=== PATIENT | male | born 1990 | race Caucasian/White ===

== ENCOUNTER 2017-09-12 16:50 | Emergency (ER) | payer OTHER ==
[2017-09-12 16:53] VITALS: BP 141/75; PULSE 92; RESP 18; TEMP 98.2
--- NOTE | 2017-09-12 17:09 | ED ---
ENT HPI - General Chief complaint: Dental/Oral Stated complaint: Tooth Pain Time Seen by Provider: 09/12/17 16:53 Source: patient Mode of arrival: ambulatory Limitations: no limitations - History of Present Illness Initial comments: 27-year-old male patient presented to the emergency department today for evaluation of left-sided dental pain. Patient states his broken tooth on the left upper and the left lower. Patient states that he broke 2 teeth playing football couple of years ago. States that he started having pain to the area is about 3 days ago. States he does have a dentist appointment next week however cannot stand the pain until then. States he is unable to sleep, eat, or drink related to this. He is reporting mild left-sided facial swelling. He denies any fevers or chills. Denies any trismus or difficulty swallowing. Patient denies any recent rash, shortness breath, chest pain, abdominal pain, nausea, vomiting, diarrhea, constipation, back pain, numbness, tingling, dizziness, weakness, hematuria, dysuria, urinary urgency, urinary frequency, headache, visual changes, or any other complaints. - Related Data Home Medications Medication Instructions Recorded Confirmed Acetaminophen Tab [Tylenol Tab] 650 mg PO RT-Q6H PRN 09/18/16 09/18/16 Ibuprofen [Motrin] 200 - 400 mg PO Q6HR PRN 09/18/16 09/18/16 Previous Rx's Medication Instructions Recorded HYDROcodone/APAP 5-325MG [[place] 1 tab PO Q6HR PRN #20 tab 09/18/16 5-325] Ibuprofen [Motrin] 800 mg PO Q8HR PRN #21 tab 09/18/16 Penicillin V Potassium [Pen Vee K] 500 mg PO TID 10 Days tab 09/18/16 Acetaminophen-Codeine 300-30mg 1 tab PO Q6H PRN #15 tablet 09/12/17 [Tylenol #3] Ibuprofen [Motrin] 600 mg PO Q8HR PRN #30 tab 09/12/17 Penicillin V Potassium [Pen Vee K] 500 mg PO Q6H #40 tablet 09/12/17 Allergies Allergy/AdvReac Type Severity Reaction Status Date / Time Sulfa (Sulfonamide Allergy Dyspnea/Bi Verified 09/12/17 16:52 Antibiotics) h/Hives Review of Systems ROS Statement: Those systems with pertinent positive or pertinent negative responses have been documented in the HPI. ROS Other: All systems not noted in ROS Statement are negative. Past Medical History Past Medical History: No Reported History History of Any Multi-Drug Resistant Organisms: None Reported Past Surgical History: Appendectomy, Ear Surgery, Tonsillectomy Additional Past Surgical History / Comment(s): eye surgery Past Psychological History: No Psychological Hx Reported Smoking Status: Current every day smoker Past Alcohol Use History: Occasional Past Drug Use History: Marijuana General Exam Limitations: no limitations General appearance: alert, in no apparent distress, other (This is a well- developed, well-nourished adult male patient in no acute distress. Vital signs upon presentation are temperature 98.2F, pulse 92, respirations 18, blood pressure 141/75, pulse ox 98% on room air.) Eye exam: Present: normal appearance, PERRL, EOMI. Absent: scleral icterus, conjunctival injection, periorbital swelling ENT exam: Present: normal exam, mucous membranes moist, other (Poor dentition noted. Multiple broken teeth to the left upper and left lower jaw. There is surrounding gingival erythema and swelling.) Neck exam: Present: normal inspection. Absent: tenderness, meningismus, lymphadenopathy Respiratory exam: Present: normal lung sounds bilaterally. Absent: respiratory distress, wheezes, rales, rhonchi, stridor Cardiovascular Exam: Present: regular rate, normal rhythm, normal heart sounds. Absent: systolic murmur, diastolic murmur, rubs, gallop, clicks Neurological exam: Present: alert, oriented X3, CN II-XII intact Psychiatric exam: Present: normal affect, normal mood Skin exam: Present: warm, dry, intact, normal color. Absent: rash Course Vital Signs 09/12/17 16:50 Temperature 98.2 F Pulse Rate 92 Respiratory 18 Rate Blood Pressure 141/75 O2 Sat by Pulse 98 Oximetry Medical Decision Making - Medical Decision Making 27-year-old male patient presented to the emergency department today for evaluation of left-sided dental pain. Physical examination did reveal mild left -sided facial swelling. Multiple broken teeth. Surrounding gingival erythema and swelling. No evidence of drainable abscess. We will discharge patient with pain medication and antibiotics. He does have a dentist appointment next week he is urged to keep this appointment. He is instructed to return here immediately for any new, worsening, or concerning symptoms. He verbalizes understanding and agrees with this plan. Disposition Clinical Impression: Dental infection Disposition: HOME SELF-CARE Condition: Good Instructions: Dental Caries (ED), Toothache (ED) Additional Instructions: Apply warm compresses to the outside of the face. Take medications as directed. Follow-up with the primary care physician for recheck in 1-2 days. Return here immediately for any new, worsening, or concerning symptoms. Prescriptions: Acetaminophen-Codeine 300-30mg [Tylenol #3] 1 tab PO Q6H PRN #15 tablet PRN Reason: Pain Ibuprofen [Motrin] 600 mg PO Q8HR PRN #30 tab PRN Reason: Pain Penicillin V Potassium [Pen Vee K] 500 mg PO Q6H #40 tablet Referrals: Carmen Gray MD [Primary Care Provider] - 1-2 days Time of Disposition: 17:08
[2017-09-12] MEDS ORDERED: KETOROLAC 30 MG/ML 1 ML VIAL IM STA (17:11)
== END 2017-09-12 17:24 | disposition home or self-care (01) ==
LOC: EC 16:50
DX: K04.7 Periapical abscess without sinus (principal); S02.5XXD Fracture of tooth (traumatic), subsequent encounter for fracture with routine healing; F17.200 Nicotine dependence, unspecified, uncomplicated; Z88.2 Allergy status to sulfonamides
CPT/HCPCS: 99282; 96372; J1885

== ENCOUNTER 2018-02-06 01:20 | Emergency (ER) | payer OTHER ==
[2018-02-06 01:24] VITALS: BP 140/95; PULSE 81; RESP 18; TEMP 97.8
[2018-02-06] MEDS ORDERED: LIDOCAINE IM STA (01:33)
[2018-02-06] MEDS ORDERED: EPINEPHRINE IM STA (01:33)
--- NOTE | 2018-02-06 01:35 | ED ---
ENT HPI - General Chief complaint: ENT Stated complaint: FB ear Time Seen by Provider: 02/06/18 01:33 Source: patient Mode of arrival: ambulatory Limitations: no limitations - History of Present Illness Initial comments: Juan is a 27-year-old male who presents the emergency department for evaluation of a possible bug in his left ear. Patient reports that he was sleeping comfortably when he suddenly felt a buzzing in his left ear. He he felt that there was a bug in his ear, he attempted to remove it with a Q-tip but states that he heard a crunching and is concerned that he may have pushed it further in his ear. He reports the bug stopped buzzing after he smashed it with the q-tip. He expresses significant anxiety about the situation but no other complaints. - Related Data Home Medications Medication Instructions Recorded Confirmed Acetaminophen Tab [Tylenol Tab] 650 mg PO RT-Q6H PRN 09/18/16 09/18/16 Ibuprofen [Motrin] 200 - 400 mg PO Q6HR PRN 09/18/16 09/18/16 Previous Rx's Medication Instructions Recorded HYDROcodone/APAP 5-325MG [[place] 1 tab PO Q6HR PRN #20 tab 09/18/16 5-325] Ibuprofen [Motrin] 800 mg PO Q8HR PRN #21 tab 09/18/16 Penicillin V Potassium [Pen Vee K] 500 mg PO TID 10 Days tab 09/18/16 Acetaminophen-Codeine 300-30mg 1 tab PO Q6H PRN #15 tablet 09/12/17 [Tylenol #3] Ibuprofen [Motrin] 600 mg PO Q8HR PRN #30 tab 09/12/17 Penicillin V Potassium [Pen Vee K] 500 mg PO Q6H #40 tablet 09/12/17 Allergies Allergy/AdvReac Type Severity Reaction Status Date / Time Sulfa (Sulfonamide Allergy Dyspnea/Bi Verified 02/06/18 01:25 Antibiotics) h/Hives Review of Systems ROS Statement: Those systems with pertinent positive or pertinent negative responses have been documented in the HPI. ROS Other: All systems not noted in ROS Statement are negative. Past Medical History Past Medical History: No Reported History History of Any Multi-Drug Resistant Organisms: None Reported Past Surgical History: Appendectomy, Ear Surgery, Tonsillectomy Additional Past Surgical History / Comment(s): eye surgery Past Psychological History: No Psychological Hx Reported Smoking Status: Current every day smoker Past Alcohol Use History: Occasional Past Drug Use History: Marijuana General Exam Limitations: no limitations General appearance: alert, anxious Head exam: Present: atraumatic, normocephalic Eye exam: Present: PERRL ENT exam: Present: other (Foreign body in left ear, appears to be some species of beatle) Neck exam: Present: full ROM. Absent: lymphadenopathy Respiratory exam: Absent: respiratory distress Cardiovascular Exam: Present: regular rate GI/Abdominal exam: Absent: distended Rectal exam: Present: deferred Extremities exam: Present: full ROM Neurological exam: Present: normal gait Psychiatric exam: Present: anxious (situationaly appropraiate anxiety ) Skin exam: Present: warm, dry, intact Course Vital Signs 02/06/18 01:22 Temperature 97.8 F Pulse Rate 81 Respiratory 18 Rate Blood Pressure 140/95 O2 Sat by Pulse 96 Oximetry Procedures - Foreign Body Removal Ear Location: ear canal (L) Foreign Body Suspected: insect If Insect Suspected: ear canal instilled with Lidocaine Foreign Body Removed: yes Foreign Body Removal Technique: forceps Tympanic Membrane Intact: Yes Patient Tolerated Procedure: well Complications: none Medical Decision Making - Medical Decision Making Patient was seen and evaluated, was obtained from the patient Physical exam is consistent with possible medial like bug in the left ear canal the TM is not visible upon initial evaluation Lidocaine with epinephrine was placed in the patient's ear and the patient was given time to rest to allow some analgesia of the ear canal Attempt to remove the bug with a curet was unsuccessful, ear was irrigated and the bug was removed with small forceps There was some abrasion to the ear canal, tympanic membrane remained intact Patient was advised to avoid putting anything in the ear, he was notified of the abrasions to his ear canals and there was a small amount of blood in the ear canal. He was advised to return to the ER if he develops any sudden onset of dizziness any gush of fluid from the area that could indicated tympanic membrane rupture. All questions pertaining care were answered patient was discharged home in stable condition. Disposition Clinical Impression: Foreign body of ear, left Disposition: HOME SELF-CARE Condition: Good Instructions: Ear Foreign Body (ED) Additional Instructions: There was a little bit of scratching to your ear canal with a little bit of bleeding, stick any foreign objects including Q-tips in the ear. Wash outside of the ear with a washcloth. Follow up with her primary care physician for reevaluation of the ear. Return to the ER with any worsening ear pain, any gush of fluid from the ear, any sudden onset of dizziness as this could indicate a ruptured eardrum. Is patient prescribed a controlled substance at d/c from ED?: No Referrals: Carmen Gray MD [Primary Care Provider] - 1-2 days Time of Disposition: 01:59
== END 2018-02-06 02:11 | disposition home or self-care (01) ==
LOC: EC 01:20
DX: T16.2XXA Foreign body in left ear, initial encounter (principal); F17.200 Nicotine dependence, unspecified, uncomplicated; Z98.890 Other specified postprocedural states; Z88.2 Allergy status to sulfonamides
CPT/HCPCS: 69200; 99282

== ENCOUNTER 2019-07-30 20:58 | Emergency (ER) | payer OTHER ==
[2019-07-30] MEDS ORDERED: MAG HYDROX/AL HYDROX/SIMETH 30 ML, HYOSCYAMINE ELIXIR 10 ML, LIDOCAINE VISCOUS 2% 10 ML PO STA ×3 (21:46)
--- NOTE | 2019-07-30 21:46 | ED ---
ENT HPI - General Chief complaint: ENT Stated complaint: FB Throat Time Seen by Provider: 07/30/19 21:13 Source: patient Mode of arrival: ambulatory Limitations: no limitations - History of Present Illness Initial comments: This is a 29-year-old male DF for evaluation patient has a for evaluation regarding possible foreign body in throat. Patient is able to eat and drink mild pain pain in the anterior right aspect of his throat occurred Diane some thoraces earlier in the day. No shortness of breath no other complaints no medical history no significant sick contacts or travel history. Patient has a fevers or other symptoms MD complaint: sore throat, foreign body -: hour(s) Location: throat Severity: mild Severity scale (1-10): 2 Consistency: constant Improves with: none Worsens with: swallowing Associated Symptoms: pain with swallowing - Related Data Home Medications Medication Instructions Recorded Confirmed Acetaminophen Tab [Tylenol Tab] 650 mg PO RT-Q6H PRN 09/18/16 09/18/16 Ibuprofen [Motrin] 200 - 400 mg PO Q6HR PRN 09/18/16 09/18/16 Previous Rx's Medication Instructions Recorded HYDROcodone/APAP 5-325MG [[place] 1 tab PO Q6HR PRN #20 tab 09/18/16 5-325] Ibuprofen [Motrin] 800 mg PO Q8HR PRN #21 tab 09/18/16 Penicillin V Potassium [Pen Vee K] 500 mg PO TID 10 Days tab 09/18/16 Acetaminophen-Codeine 300-30mg 1 tab PO Q6H PRN #15 tablet 09/12/17 [Tylenol #3] Ibuprofen [Motrin] 600 mg PO Q8HR PRN #30 tab 09/12/17 Penicillin V Potassium [Pen Vee K] 500 mg PO Q6H #40 tablet 09/12/17 Allergies Allergy/AdvReac Type Severity Reaction Status Date / Time Sulfa (Sulfonamide Allergy Dyspnea/Bi Verified 07/30/19 21:11 Antibiotics) h/Hives Review of Systems ROS Statement: Those systems with pertinent positive or pertinent negative responses have been documented in the HPI. ROS Other: All systems not noted in ROS Statement are negative. Past Medical History Past Medical History: No Reported History History of Any Multi-Drug Resistant Organisms: None Reported Past Surgical History: Appendectomy, Ear Surgery, Tonsillectomy Additional Past Surgical History / Comment(s): eye surgery Past Psychological History: No Psychological Hx Reported Smoking Status: Current every day smoker Past Alcohol Use History: Occasional Past Drug Use History: Marijuana General Exam Limitations: no limitations General appearance: alert, in no apparent distress Head exam: Present: atraumatic, normocephalic, normal inspection Eye exam: Present: normal appearance, PERRL, EOMI. Absent: scleral icterus, conjunctival injection, periorbital swelling ENT exam: Present: normal exam, mucous membranes moist Neck exam: Present: normal inspection. Absent: tenderness, meningismus, lymphadenopathy Respiratory exam: Present: normal lung sounds bilaterally. Absent: respiratory distress, wheezes, rales, rhonchi, stridor Cardiovascular Exam: Present: regular rate, normal rhythm, normal heart sounds. Absent: systolic murmur, diastolic murmur, rubs, gallop, clicks GI/Abdominal exam: Present: soft, normal bowel sounds. Absent: distended, tenderness, guarding, rebound, rigid Extremities exam: Present: normal inspection, full ROM, normal capillary refill. Absent: tenderness, pedal edema, joint swelling, calf tenderness Back exam: Present: normal inspection Neurological exam: Present: alert, oriented X3, CN II-XII intact Psychiatric exam: Present: normal affect, normal mood Skin exam: Present: warm, dry, intact, normal color. Absent: rash Course Vital Signs 07/30/19 07/30/19 21:09 22:49 Temperature 97.8 F 97.9 F Pulse Rate 74 75 Respiratory 20 18 Rate Blood Pressure 108/70 110/78 O2 Sat by Pulse 100 100 Oximetry - Reevaluation(s) Reevaluation #1: Medical records reviewed Patient is able to eat and drink here in the ER Medical Decision Making - Medical Decision Making 29 male will follow up with outpatient GI services for evaluation of possible retained foreign body patient's able to eat and drink and is in no distress, stable for follow-up Disposition Clinical Impression: Esophageal foreign body Disposition: HOME SELF-CARE Condition: Good Instructions (If sedation given, give patient instructions): Esophageal Foreign Body (ED) Is patient prescribed a controlled substance at d/c from ED?: No Referrals: Samuel Antunez MD [Primary Care Provider] - 1-2 days Ross Zacarias MD [STAFF PHYSICIAN] - 1-2 days
--- NOTE | 2019-07-30 22:00 | XR ---
EXAMINATION TYPE: XR chest 1V portable DATE OF EXAM: 07/30/2019 COMPARISON: October 12, 2010 HISTORY: Chest pain TECHNIQUE: FINDINGS: Heart and mediastinum are normal. Lungs are clear. Diaphragm is normal. Bony thorax appears normal. IMPRESSION: Normal chest. No change.
[2019-07-30 22:50] VITALS: BP 110/78; PULSE 75; RESP 18; TEMP 97.9
== END 2019-07-30 22:50 | disposition home or self-care (01) ==
LOC: EC 20:58
DX: T18.128A Food in esophagus causing other injury, initial encounter (principal); F17.200 Nicotine dependence, unspecified, uncomplicated; Z88.2 Allergy status to sulfonamides; X58.XXXA Exposure to other specified factors, initial encounter; Z90.89 Acquired absence of other organs
CPT/HCPCS: 71045; 99283

== ENCOUNTER 2020-05-28 13:25 | Emergency (ER) | payer OTHER ==
[2020-05-28] MEDS ORDERED: BUPIVACAINE (PF) 0.5% 30 ML VIAL SQ STA (14:01)
--- NOTE | 2020-05-28 14:02 | ED ---
ENT HPI - General Chief complaint: Dental/Oral Stated complaint: dental infection Time Seen by Provider: 05/28/20 13:59 Source: patient Mode of arrival: ambulatory Limitations: no limitations - History of Present Illness Initial comments: 30-year-old male presenting to the emergency department with chief complaint abdominal pain. Patient states he has not seen dentist in a several years. He states there is a fractured tooth on the lower left side for the past several years with intermittent pain. States for the past several days he has increased pain in the region. He denies any swelling but states the pain is increasing severity. Reports taking ibuprofen and Tylenol with no significant improvement in symptoms. Denies any night sweats or chills. Denies any drooling dysphagia or odontophagia. - Related Data Home Medications Medication Instructions Recorded Confirmed Acetaminophen Tab [Tylenol Tab] 650 mg PO RT-Q6H PRN 09/18/16 09/18/16 Ibuprofen [Motrin] 200 - 400 mg PO Q6HR PRN 09/18/16 09/18/16 Previous Rx's Medication Instructions Recorded HYDROcodone/APAP 5-325MG [[place] 1 tab PO Q6HR PRN #20 tab 09/18/16 5-325] Ibuprofen [Motrin] 800 mg PO Q8HR PRN #21 tab 09/18/16 Penicillin V Potassium [Pen Vee K] 500 mg PO TID 10 Days tab 09/18/16 Acetaminophen-Codeine 300-30mg 1 tab PO Q6H PRN #15 tablet 09/12/17 [Tylenol #3] Ibuprofen [Motrin] 600 mg PO Q8HR PRN #30 tab 09/12/17 Penicillin V Potassium [Pen Vee K] 500 mg PO Q6H #40 tablet 09/12/17 Amoxicillin/Potassium Clav 1 tab PO Q12HR #20 tab 05/28/20 [Augmentin 875-125 Tablet] Allergies Allergy/AdvReac Type Severity Reaction Status Date / Time Sulfa (Sulfonamide Allergy Dyspnea/Bi Verified 05/28/20 13:31 Antibiotics) h/Hives Review of Systems ROS Statement: Those systems with pertinent positive or pertinent negative responses have been documented in the HPI. ROS Other: All systems not noted in ROS Statement are negative. Past Medical History Past Medical History: No Reported History History of Any Multi-Drug Resistant Organisms: None Reported Past Surgical History: Appendectomy, Ear Surgery, Tonsillectomy Additional Past Surgical History / Comment(s): eye surgery Past Psychological History: No Psychological Hx Reported Smoking Status: Current every day smoker Past Alcohol Use History: Occasional Past Drug Use History: Marijuana General Exam Limitations: no limitations General appearance: alert, in no apparent distress Head exam: Present: atraumatic, normocephalic, normal inspection Eye exam: Present: normal appearance, PERRL, EOMI Pupils: Present: normal accommodation ENT exam: Present: normal exam, mucous membranes moist, TM's normal bilaterally, normal external ear exam. Absent: normal oropharynx (Poor dentition. Mild surrounding erythema in the left lower mandible. Partially fractured tooth #18. No signs of periapical abscess.) Neck exam: Present: normal inspection, full ROM. Absent: tenderness, lymphadenopathy Respiratory exam: Present: normal lung sounds bilaterally. Absent: respiratory distress, wheezes, rales Cardiovascular Exam: Present: regular rate, normal rhythm, normal heart sounds. Absent: systolic murmur, diastolic murmur GI/Abdominal exam: Present: soft. Absent: distended, tenderness, guarding Extremities exam: Present: normal inspection, full ROM, normal capillary refill. Absent: tenderness, pedal edema, joint swelling Back exam: Present: normal inspection, full ROM. Absent: tenderness, CVA tenderness (R), CVA tenderness (L) Neurological exam: Present: alert, oriented X3 Psychiatric exam: Present: normal affect, normal mood Skin exam: Present: warm, dry, intact, normal color Course Vital Signs 05/28/20 13:27 Temperature 98.4 F Pulse Rate 72 Respiratory 15 Rate Blood Pressure 149/99 O2 Sat by Pulse 98 Oximetry Procedures - Nerve Block Consent Obtained: verbal consent Local Anesthetic Used: Marcaine 0.5% Amount of anesthesia used: 5 Side: left Intraoral Nerve Block: inferior alveolar Procedure Successful: Yes Patient Tolerated Procedure: well, no complications Medical Decision Making - Medical Decision Making 30-year-old male presenting to the emergency department chief complaint dental pain. Physical examination, patient has a partially fractured tooth #18. Poor dentition overall. No signs of periapical abscess or other lesions. Patient will be started on Augmentin. Also give the patient Tylenol 3 starter pack. Left inferior alveolar block performed and it was successful. Return parameters discussed with patient was sitting agreeable. He has an appointment scheduled dentist over the next 2-3 weeks. Case discussed with physician. Disposition Clinical Impression: Pain, dental, Dental caries Disposition: HOME SELF-CARE Condition: Stable Instructions (If sedation given, give patient instructions): Toothache (ED) Additional Instructions: Take prescribed medication as directed. Follow up with a dentist. Return to emergency department if symptoms worsen. Prescriptions: Amoxicillin/Potassium Clav [Augmentin 875-125 Tablet] 1 tab PO Q12HR #20 tab Is patient prescribed a controlled substance at d/c from ED?: No Referrals: None,Stated [Primary Care Provider] - 1-2 days Time of Disposition: 14:23
[2020-05-28] MEDS ORDERED: ACET/COD 300 MG/30 MG STARTER PACK 6 TAB BTL PO STA (14:22)
[2020-05-28 14:40] VITALS: BP 156/104; PULSE 80; RESP 18; TEMP 98.1
== END 2020-05-28 14:45 | disposition home or self-care (01) ==
LOC: EC 13:25
DX: K02.9 Dental caries, unspecified (principal); K03.81 Cracked tooth; R10.9 Unspecified abdominal pain; F17.200 Nicotine dependence, unspecified, uncomplicated; Z88.2 Allergy status to sulfonamides
CPT/HCPCS: 64400; 99282

== ENCOUNTER 2020-05-29 07:21 | Emergency (ER) | payer OTHER ==
[2020-05-29 07:26] VITALS: BP 146/88; PULSE 111; RESP 18; TEMP 98.3
[2020-05-29] MEDS ORDERED: BUPIVACAINE (PF) 0.5% 30 ML VIAL SQ STA (07:34)
--- NOTE | 2020-05-29 07:41 | ED ---
ENT HPI - General Chief complaint: Dental/Oral Stated complaint: Revisit - Mouth Pain/Tooth Infection Time Seen by Provider: 05/29/20 07:27 Source: patient, RN notes reviewed, old records reviewed Mode of arrival: ambulatory Limitations: no limitations - History of Present Illness Initial comments: 30-year-old male presents to the emergency department today for evaluation for left lower jaw discomfort. He has history of poor dentition. He reports his fractured lower molar. He states he was seen yesterday in the emergency department due to nerve block and placed on antibiotic. Patient states he woke up today with some complaints of chills and states that he's had some increased left lower facial swelling. Patient states that he has no current appointment with dentist at this time. - Related Data Home Medications Medication Instructions Recorded Confirmed Acetaminophen Tab [Tylenol Tab] 650 mg PO RT-Q6H PRN 09/18/16 09/18/16 Ibuprofen [Motrin] 200 - 400 mg PO Q6HR PRN 09/18/16 09/18/16 Previous Rx's Medication Instructions Recorded HYDROcodone/APAP 5-325MG [Unity 1 tab PO Q6HR PRN #20 tab 09/18/16 5-325] Ibuprofen [Motrin] 800 mg PO Q8HR PRN #21 tab 09/18/16 Penicillin V Potassium [Pen Vee K] 500 mg PO TID 10 Days tab 09/18/16 Acetaminophen-Codeine 300-30mg 1 tab PO Q6H PRN #15 tablet 09/12/17 [Tylenol #3] Ibuprofen [Motrin] 600 mg PO Q8HR PRN #30 tab 09/12/17 Penicillin V Potassium [Pen Vee K] 500 mg PO Q6H #40 tablet 09/12/17 Amoxicillin 875 mg PO Q12HR #20 tablet 05/28/20 Amoxicillin/Potassium Clav 1 tab PO Q12HR #20 tab 05/28/20 [Augmentin 875-125 Tablet] Allergies Allergy/AdvReac Type Severity Reaction Status Date / Time Sulfa (Sulfonamide Allergy Dyspnea/Bi Verified 05/29/20 07:23 Antibiotics) h/Hives Review of Systems ROS Statement: Those systems with pertinent positive or pertinent negative responses have been documented in the HPI. ROS Other: All systems not noted in ROS Statement are negative. Past Medical History Past Medical History: No Reported History History of Any Multi-Drug Resistant Organisms: None Reported Past Surgical History: Appendectomy, Ear Surgery, Tonsillectomy Additional Past Surgical History / Comment(s): eye surgery Past Psychological History: No Psychological Hx Reported Smoking Status: Current every day smoker Past Alcohol Use History: Occasional, Rare Past Drug Use History: Marijuana General Exam - General Exam Comments Initial Comments: 30-year-old male. Alert and oriented. No acute distress. Limitations: no limitations General appearance: alert, in no apparent distress Head exam: Present: atraumatic, normocephalic, normal inspection Eye exam: Present: normal appearance, PERRL, EOMI. Absent: scleral icterus, conjunctival injection, periorbital swelling ENT exam: Present: normal exam. Absent: normal oropharynx ( is poor dentition. Evidence of multiple dental caries and fractured teeth. He has evidence of swelling over the left lower molar with impacted fractured tooth.) Neck exam: Present: normal inspection. Absent: tenderness, meningismus, lymphadenopathy Respiratory exam: Present: normal lung sounds bilaterally. Absent: respiratory distress, wheezes, rales, rhonchi, stridor Cardiovascular Exam: Present: regular rate, normal rhythm, normal heart sounds. Absent: systolic murmur, diastolic murmur, rubs, gallop, clicks GI/Abdominal exam: Present: soft, normal bowel sounds. Absent: distended, tenderness, guarding, rebound, rigid Extremities exam: Present: normal inspection, full ROM, normal capillary refill. Absent: tenderness, pedal edema, joint swelling, calf tenderness Back exam: Present: normal inspection Neurological exam: Present: alert, oriented X3, CN II-XII intact Psychiatric exam: Present: normal affect, normal mood Skin exam: Present: warm, dry, intact, normal color. Absent: rash Course Vital Signs 05/29/20 07:23 Temperature 98.3 F Pulse Rate 111 H Respiratory 18 Rate Blood Pressure 146/88 O2 Sat by Pulse 97 Oximetry Procedures - Incision & Drainage Indication: dental Size (cm): 3 Anesthetic Used: lidocaine 1% Amount (mLs): 5 Sterile Field Used?: Yes Scalpel Used: #11 I&D Drainage Obtained: Pus, Blood Culture Obtained?: No Patient Tolerated Procedure: well, no complications - Nerve Block Local Anesthetic Used: Marcaine 0.5% Amount of anesthesia used: 5 Side: left Intraoral Nerve Block: inferior alveolar Procedure Successful: Yes Patient Tolerated Procedure: well, no complications Medical Decision Making - Medical Decision Making 30-year-old male presents for a short stay for reevaluation for dental abscess. Patient had incision and drainage performed approximately I cc of purulent fluid was removed around left lower molar. Patient told to procedure well. Advised to continue antibiotics amoxicillin. He has a 7 upcoming appointment with dentist. Discussed return parameters. Disposition Clinical Impression: Dental abscess Disposition: HOME SELF-CARE Condition: Good Instructions (If sedation given, give patient instructions): Dental Abscess (ED) Additional Instructions: Continue the antibiotics as prescribed. Return to the ED if any alarming signs or symptoms occur. [facility] [place] [id number] [place] [address] [phone] (existing clients only) For new clients: [phone] 1st consult: $50 (includes Xrays) Usually 30% less then private dentist for visits after. [employer] Have to pay $50 for Xrays anmd rest is covered. [phone] Is patient prescribed a controlled substance at d/c from ED?: No Referrals: None,Stated [Primary Care Provider] - 1-2 days Time of Disposition: 08:14
== END 2020-05-29 08:18 | disposition home or self-care (01) ==
LOC: EC 07:21
DX: K04.7 Periapical abscess without sinus (principal); F17.200 Nicotine dependence, unspecified, uncomplicated; Z88.2 Allergy status to sulfonamides
CPT/HCPCS: 41800; 64400; 99283

== ENCOUNTER 2020-10-12 13:51 | Emergency (ER) | payer OTHER ==
[2020-10-12 14:01] VITALS: TEMP 97.6
[2020-10-12] MEDS ORDERED: SODIUM CHLORIDE 0.9% 1,000 ML IV STA (14:30)
--- NOTE | 2020-10-12 14:42 | ED ---
Arrhythmia/Palpitations HPI - General Chief Complaint: Arrhythmia/Palpitations Stated Complaint: Weakness,High HR Time Seen by Provider: 10/12/20 14:20 Source: patient, RN notes reviewed Mode of arrival: ambulatory Limitations: no limitations - History of Present Illness Initial Comments: Patient is a 30-year-old male that presents to emergency department complaining of heart palpitations for 2 days. He notes that he's had similar problems for the past years follow-up with algology teacher got nuclear stress test echocardiograms other stress tests and BACK negative for any findings. He notes over the last 2 days he was driving to [place] when he noticed that he felt like his blood pressure dropped his heart stopped and then like a shot of adrenaline a came back his heart started beating fast. He noted that when he got home it happened again and he had a hot flash took all his clothes off and then got chills. He stated hot flashes and chills are new symptoms. He decided come emergency room to get evaluated. He denied any current chest pain shortness of breath headache nausea vomiting diarrhea constipation fever fatigue chills change in sense of taste or smell. - Related Data Home Medications Medication Instructions Recorded Confirmed Aspirin EC [Ecotrin] 325 mg PO DAILY 10/12/20 10/12/20 Allergies Allergy/AdvReac Type Severity Reaction Status Date / Time Sulfa (Sulfonamide Allergy Dyspnea/Bi Verified 10/12/20 16:15 Antibiotics) h/Hives Review of Systems ROS Statement: Those systems with pertinent positive or pertinent negative responses have been documented in the HPI. ROS Other: All systems not noted in ROS Statement are negative. Past Medical History Past Medical History: No Reported History History of Any Multi-Drug Resistant Organisms: None Reported Past Surgical History: Appendectomy, Ear Surgery, Tonsillectomy Additional Past Surgical History / Comment(s): eye surgery Past Psychological History: No Psychological Hx Reported Smoking Status: Current every day smoker Past Alcohol Use History: Occasional, Rare Past Drug Use History: Marijuana General Exam Limitations: no limitations General appearance: alert, in no apparent distress Head exam: Present: atraumatic, normocephalic, normal inspection Eye exam: Present: normal appearance, PERRL, EOMI. Absent: scleral icterus, conjunctival injection, periorbital swelling Neck exam: Present: normal inspection. Absent: tenderness, meningismus, lymphadenopathy Respiratory exam: Present: normal lung sounds bilaterally. Absent: respiratory distress, wheezes, rales, rhonchi, stridor Cardiovascular Exam: Present: regular rate, normal rhythm, normal heart sounds. Absent: systolic murmur, diastolic murmur, rubs, gallop, clicks GI/Abdominal exam: Present: soft, normal bowel sounds. Absent: distended, tenderness, guarding, rebound, rigid Extremities exam: Present: normal inspection, full ROM, normal capillary refill. Absent: tenderness, pedal edema, joint swelling, calf tenderness Neurological exam: Present: alert, oriented X3, CN II-XII intact Psychiatric exam: Present: normal affect, normal mood Skin exam: Present: warm, dry, intact, normal color. Absent: rash Course Vital Signs 10/12/20 10/12/20 10/12/20 13:58 14:30 15:00 Temperature 97.6 F Pulse Rate 106 H 79 77 Respiratory 22 18 18 Rate Blood Pressure 153/99 142/104 140/99 O2 Sat by Pulse 99 97 98 Oximetry 10/12/20 15:30 Temperature Pulse Rate 71 Respiratory 19 Rate Blood Pressure 136/92 O2 Sat by Pulse 98 Oximetry EKG Findings - EKG Comments: EKG Findings:: Ventricular rate 77 bpm, GA interval 124 ms, QRS duration 88 ms, QT/QTC 352/398 ms, PRT axes 67/127/62. Normal sinus rhythm with sinus arrhythmia, possible left atrial enlargement, right axis deviation, pulmonary disease pattern, abnormal ECG. Medical Decision Making - Medical Decision Making 30-year-old male with palpitations, heat flashes and chills over the last 2 days. Labs, 1 L normal saline, chest x-ray, EKG, cosmetology instructor ordered. Labs show elevated hemoglobin at 19.5 and elevated hematocrit at 54.5. CT of the chest and abdomen with contrast ordered. Case discussed with Dr. Wisdom, patient can discharge home with follow-up primary care and algology teacher. - Lab Data Result diagrams: 10/12/20 14:32 10/12/20 14:32 Lab Results 10/12/20 10/12/20 10/12/20 Range/Units 14:32 14:32 14:32 WBC 9.1 (3.8-10.6) k/uL RBC 6.35 H (4.30-5.90) m/uL Hgb 19.5 H* (13.0-17.5) gm/dL Hct 54.9 H (39.0-53.0) % MCV 86.4 (80.0-100.0) fL MCH 30.7 (25.0-35.0) pg MCHC 35.6 (31.0-37.0) g/dL RDW 13.6 (11.5-15.5) % Plt Count 310 (150-450) k/uL MPV 7.2 Neutrophils % 74 % Lymphocytes % 16 % Monocytes % 5 % Eosinophils % 4 % Basophils % 1 % Neutrophils # 6.7 (1.3-7.7) k/uL Lymphocytes # 1.5 (1.0-4.8) k/uL Monocytes # 0.4 (0-1.0) k/uL Eosinophils # 0.3 (0-0.7) k/uL Basophils # 0.1 (0-0.2) k/uL PT 11.4 (9.0-12.0) sec INR 1.1 (<1.2) APTT 25.2 (22.0-30.0) sec Sodium 141 (137-145) mmol/L Potassium 4.3 (3.5-5.1) mmol/L Chloride 102 (98-107) mmol/L Carbon Dioxide 28 (22-30) mmol/L Anion Gap 11 mmol/L BUN 17 (9-20) mg/dL Creatinine 1.07 (0.66-1.25) mg/dL Est GFR (CKD-EPI)AfAm >90 (>60 ml/min/1.73 sqM) Est GFR (CKD-EPI)NonAf >90 (>60 ml/min/1.73 sqM) Glucose 92 (74-99) mg/dL Calcium 10.7 H (8.4-10.2) mg/dL Magnesium 1.8 (1.6-2.3) mg/dL Total Bilirubin 1.7 H (0.2-1.3) mg/dL AST 39 (17-59) U/L ALT 60 H (4-49) U/L Alkaline Phosphatase 62 (38-126) U/L Troponin I (0.000-0.034) ng/mL Total Protein 8.7 H (6.3-8.2) g/dL Albumin 5.5 H (3.5-5.0) g/dL Urine Color Urine Appearance (Clear) Urine pH (5.0-8.0) Ur Specific [place] (1.001-1.035) Urine Protein (Negative) Urine Glucose (UA) (Negative) Urine Ketones (Negative) Urine Blood (Negative) Urine Nitrite (Negative) Urine Bilirubin (Negative) Urine Urobilinogen (<2.0) mg/dL Ur Leukocyte Esterase (Negative) 10/12/20 10/12/20 Range/Units 14:32 14:56 WBC (3.8-10.6) k/uL RBC (4.30-5.90) m/uL Hgb (13.0-17.5) gm/dL Hct (39.0-53.0) % MCV (80.0-100.0) fL MCH (25.0-35.0) pg MCHC (31.0-37.0) g/dL RDW (11.5-15.5) % Plt Count (150-450) k/uL MPV Neutrophils % % Lymphocytes % % Monocytes % % Eosinophils % % Basophils % % Neutrophils # (1.3-7.7) k/uL Lymphocytes # (1.0-4.8) k/uL Monocytes # (0-1.0) k/uL Eosinophils # (0-0.7) k/uL Basophils # (0-0.2) k/uL PT (9.0-12.0) sec INR (<1.2) APTT (22.0-30.0) sec Sodium (137-145) mmol/L Potassium (3.5-5.1) mmol/L Chloride (98-107) mmol/L Carbon Dioxide (22-30) mmol/L Anion Gap mmol/L BUN (9-20) mg/dL Creatinine (0.66-1.25) mg/dL Est GFR (CKD-EPI)AfAm (>60 ml/min/1.73 sqM) Est GFR (CKD-EPI)NonAf (>60 ml/min/1.73 sqM) Glucose (74-99) mg/dL Calcium (8.4-10.2) mg/dL Magnesium (1.6-2.3) mg/dL Total Bilirubin (0.2-1.3) mg/dL AST (17-59) U/L ALT (4-49) U/L Alkaline Phosphatase (38-126) U/L Troponin I <0.012 (0.000-0.034) ng/mL Total Protein (6.3-8.2) g/dL Albumin (3.5-5.0) g/dL Urine Color Yellow Urine Appearance Clear (Clear) Urine pH 6.0 (5.0-8.0) Ur Specific [place] 1.033 (1.001-1.035) Urine Protein Trace H (Negative) Urine Glucose (UA) Negative (Negative) Urine Ketones 1+ H (Negative) Urine Blood Negative (Negative) Urine Nitrite Negative (Negative) Urine Bilirubin Negative (Negative) Urine Urobilinogen 4.0 (<2.0) mg/dL Ur Leukocyte Esterase Negative (Negative) - EKG Data -: EKG Interpreted by Me EKG shows normal: sinus rhythm (With sinus arrhythmia) Rate: normal EKG Comments: Ventricular rate 77 bpm, GA interval 124 ms, QRS duration 88 ms, QT/QTC 352/398 ms, PRT axes 67/127/62. Normal sinus rhythm with sinus arrhythmia, possible left atrial enlargement, right axis deviation, pulmonary disease pattern, abnormal ECG - Radiology Data Radiology results: report reviewed, image reviewed Chest and abdomen CT: No acute abnormality of the chest and abdomen. L5 spondylolysis with L5-S1 mild spondylolisthesis without change. Disposition Clinical Impression: Palpitations Disposition: HOME SELF-CARE Condition: Stable Instructions (If sedation given, give patient instructions): Heart Palpitations (ED) Additional Instructions: Please return to the Emergency Department if symptoms worsen or any other concerns. Follow-up with primary care in 3-5 days. Continue to follow-up with algology teacher. Possibly get referral for hematology due to increased level of hemoglobin. Increase fluids due to dehydration trend labs. Is patient prescribed a controlled substance at d/c from ED?: No Referrals: Bala Pace MD [Primary Care Provider] - 1-2 days Time of Disposition: 16:28
[2020-10-12 14:48] LABS: ALT 60 U/L (4-49); AST 39 U/L (17-59); African American GFR (CKD) >90 (>60 ml/min/1.73 sqM); Albumin 5.5 g/dL (3.5-5.0); Alkaline Phosphatase 62 U/L (38-126); Anion Gap 11 mmol/L; Blood Urea Nitrogen 17 mg/dL (9-20); Calcium 10.7 mg/dL (8.4-10.2); Carbon Dioxide 28 mmol/L (22-30); Chloride 102 mmol/L (98-107); Glucose 92 mg/dL (74-99); Magnesium 1.8 mg/dL (1.6-2.3); Non-African American GFR(CKD) >90 (>60 ml/min/1.73 sqM); Potassium 4.3 mmol/L (3.5-5.1); Sodium 141 mmol/L (137-145); Total Bilirubin 1.7 mg/dL (0.2-1.3); Total Protein 8.7 g/dL (6.3-8.2)
[2020-10-12 14:55] LABS: Basophils # (A) 0.1 k/uL (0-0.2); Basophils % (A) 1 %; Eosinophils # (A) 0.3 k/uL (0-0.7); Eosinophils % (A) 4 %; HCT 54.9 % (39.0-53.0); Lymphocytes # (A) 1.5 k/uL (1.0-4.8); Lymphocytes % (A) 16 %; MCH 30.7 pg (25.0-35.0); MCHC 35.6 g/dL (31.0-37.0); MCV 86.4 fL (80.0-100.0); Mean Platelet Volume 7.2; Monocytes # (A) 0.4 k/uL (0-1.0); Monocytes % (A) 5 %; Neutrophils # (A) 6.7 k/uL (1.3-7.7); Neutrophils % (A) 74 %; Platelet Count 310 k/uL (150-450); RBC 6.35 m/uL (4.30-5.90); RDW 13.6 % (11.5-15.5); WBC 9.1 k/uL (3.8-10.6)
[2020-10-12 14:56] LABS: HGB 19.5 gm/dL (13.0-17.5)
[2020-10-12 15:04] LABS: INR 1.1 (<1.2); Partial Thromboplastin Time 25.2 sec (22.0-30.0); Prothrombin Time 11.4 sec (9.0-12.0)
[2020-10-12 15:09] LABS: Appearance,Urine Clear (Clear); Bilirubin,Urine Negative (Negative); Blood,Urine Negative (Negative); Color,Urine Yellow; Glucose,Urine (UA) Negative (Negative); Ketones,Urine 1+ (Negative); Leukocyte Esterase,Urine Negative (Negative); Nitrite,Urine Negative (Negative); Protein,Urine Trace (Negative); Specific Gravity,Urine 1.033 (1.001-1.035)
--- NOTE | 2020-10-12 15:18 | XR ---
EXAMINATION TYPE: XR chest 2V DATE OF EXAM: 10/12/2020 COMPARISON: 07/30/2019 HISTORY: Dysrhythmia. Chest pain. TECHNIQUE: 2 views FINDINGS: Heart and mediastinum are normal. Lungs are clear. Diaphragm is normal. Bony thorax is inta ct. IMPRESSION: Normal chest. No change.
--- NOTE | 2020-10-12 16:23 | CT ---
EXAMINATION TYPE: CT chest abdomen w con DATE OF EXAM: 10/12/2020 COMPARISON: 10/12/2010 HISTORY: Palpitations, chest pain, elevated heart rate. Pt denies cardiac hx. CT DLP: 913.6 mGycm Automated exposure control for dose reduction was used. CONTRAST: Performed with IV Contrast, patient injected with 100 mL of Isovue 300. Images were obtained from the thoracic inlet to the floor the iliac crests with IV contrast. The lungs are clear of infiltrate. There is no evidence of a pulmonary mass. There is no pleural effu amadeo. There is no pericardial effusion. There is no mediastinal adenopathy. There are no hilar masses . Heart size is normal. Thoracic aorta is intact. Liver spleen stomach pancreas appear normal. The bile ducts are not dilated. Gallbladder appears norm al. There is no adrenal mass. Kidneys show satisfactory contrast opacification. There is no hydronephrosi s. Delayed images show normal renal excretion. There is no evidence of mesenteric edema. There is no ascites or free air. There is no sign of a bowel obstruction. There is no retroperitoneal adenopathy. Thoracic and lumbar vertebra have fairly normal spacing. There is some narrowing at L5-S1 disc with s pondylolysis of L5. There is first-degree spondylolisthesis at L5-S1. There is no compression fractur e. Sternum is intact. There is apparent clips from appendectomy. IMPRESSION: No acute abnormality of the chest and abdomen. L5 spondylolysis with L5-S1 mild spondylolisthesis wit hout change.
[2020-10-12 17:06] VITALS: BP 130/90; PULSE 87; RESP 18
== END 2020-10-12 17:06 | disposition home or self-care (01) ==
LOC: EC 13:51
DX: R00.2 Palpitations (principal); Z90.49 Acquired absence of other specified parts of digestive tract; Z90.09 Acquired absence of other part of head and neck; F17.200 Nicotine dependence, unspecified, uncomplicated; F12.90 Cannabis use, unspecified, uncomplicated
CPT/HCPCS: 36415; 93005; 80053; 83735; 84484; 85025; 85610; 85730; 81003; 71046; 71260; 74160; 99285; 96360; 96361; Q9967

== ENCOUNTER 2021-07-03 23:52 | Emergency (ER) | payer OTHER ==
[2021-07-04 00:21] VITALS: BP 147/88; PULSE 88; RESP 20; TEMP 98.1
--- NOTE | 2021-07-04 01:36 | ED ---
Chest Pain HPI - General Chief Complaint: Chest Pain Stated Complaint: Chest Pain Time Seen by Provider: 07/04/21 01:35 Source: patient Mode of arrival: wheelchair Limitations: no limitations - Related Data Home Medications Medication Instructions Recorded Confirmed Aspirin EC [Ecotrin] 325 mg PO DAILY 10/12/20 10/12/20 Allergies Allergy/AdvReac Type Severity Reaction Status Date / Time Sulfa (Sulfonamide Allergy Dyspnea/Bi Verified 07/04/21 00:21 Antibiotics) h/Hives Review of Systems ROS Statement: Those systems with pertinent positive or pertinent negative responses have been documented in the HPI. ROS Other: All systems not noted in ROS Statement are negative. EKG Findings - EKG Comments: EKG Findings:: EKG shows sinus rhythm 77 CA 1:30 QRS 88 QTc 460 Past Medical History Past Medical History: No Reported History History of Any Multi-Drug Resistant Organisms: None Reported Past Surgical History: Appendectomy, Ear Surgery, Tonsillectomy Additional Past Surgical History / Comment(s): eye surgery Past Psychological History: No Psychological Hx Reported Smoking Status: Current every day smoker Past Alcohol Use History: Occasional, Rare Past Drug Use History: Marijuana General Exam Limitations: no limitations Course Vital Signs 07/04/21 00:19 Temperature 98.1 F Pulse Rate 88 Respiratory 20 Rate Blood Pressure 147/88 O2 Sat by Pulse 99 Oximetry Disposition Clinical Impression: Atypical chest pain, Chest pain Disposition: HOME SELF-CARE Condition: Good Instructions (If sedation given, give patient instructions): Chest Pain (ED) Is patient prescribed a controlled substance at d/c from ED?: No Referrals: None,Stated [Primary Care Provider] - 1-2 days
--- NOTE | 2021-07-04 02:01 | XR ---
EXAMINATION TYPE: XR chest 1V portable DATE OF EXAM: 07/04/2021 COMPARISON: 10/12/2020 HISTORY: Chest pain TECHNIQUE: FINDINGS: The heart and mediastinum are normal. Lungs are clear. Diaphragm is normal. Bony thorax migel ears normal. IMPRESSION: Normal chest. No change.
[2021-07-04 02:12] LABS: Basophils # (A) 0.1 k/uL (0-0.2); Basophils % (A) 1 %; Eosinophils # (A) 0.9 k/uL (0-0.7); Eosinophils % (A) 8 %; HCT 53.4 % (39.0-53.0); HGB 18.7 gm/dL (13.0-17.5); Lymphocytes # (A) 2.3 k/uL (1.0-4.8); Lymphocytes % (A) 21 %; MCH 30.6 pg (25.0-35.0); MCV 87.4 fL (80.0-100.0); Mean Platelet Volume 7.3; Monocytes # (A) 0.6 k/uL (0-1.0); Monocytes % (A) 5 %; Neutrophils # (A) 6.9 k/uL (1.3-7.7); Neutrophils % (A) 63 %; Platelet Count 259 k/uL (150-450); RBC 6.12 m/uL (4.30-5.90); RDW 13.5 % (11.5-15.5)
[2021-07-04 02:23] LABS: INR 1.1 (<1.2); Prothrombin Time 11.3 sec (9.0-12.0)
[2021-07-04 02:38] LABS: ALT 45 U/L (4-49); AST 38 U/L (17-59); African American GFR (CKD) >90 (>60 ml/min/1.73 sqM); Albumin 4.8 g/dL (3.5-5.0); Alkaline Phosphatase 71 U/L (38-126); Anion Gap 11 mmol/L; Blood Urea Nitrogen 20 mg/dL (9-20); Calcium 10.1 mg/dL (8.4-10.2); Carbon Dioxide 22 mmol/L (22-30); Chloride 105 mmol/L (98-107); Glucose 103 mg/dL (74-99); Lipase 76 U/L (23-300); Magnesium 1.9 mg/dL (1.6-2.3); Non-African American GFR(CKD) >90 (>60 ml/min/1.73 sqM); Potassium 4.4 mmol/L (3.5-5.1); Sodium 138 mmol/L (137-145); Total Bilirubin 0.9 mg/dL (0.2-1.3); Total Protein 7.9 g/dL (6.3-8.2)
== END 2021-07-04 03:14 | disposition home or self-care (01) ==
LOC: EC 23:52
DX: R07.89 Other chest pain (principal); F17.200 Nicotine dependence, unspecified, uncomplicated; F12.90 Cannabis use, unspecified, uncomplicated; Z79.82 Long term (current) use of aspirin; Z88.2 Allergy status to sulfonamides; Z90.49 Acquired absence of other specified parts of digestive tract
CPT/HCPCS: 36415; 71045; 80053; 83690; 83735; 83880; 84484; 85025; 85610; 85730; 87635; 93005; 99285

== ENCOUNTER 2021-08-24 19:33 | Emergency (ER) | payer OTHER ==
[2021-08-24] MEDS ORDERED: SODIUM CHLORIDE 0.9% 1,000 ML IV STA (20:08)
--- NOTE | 2021-08-24 20:42 | XR ---
EXAMINATION TYPE: XR chest 1V DATE OF EXAM: 08/24/2021 COMPARISON: NONE HISTORY: Cough TECHNIQUE: Single view FINDINGS: Heart and mediastinum are normal. Lungs are clear. Diaphragm is normal. Bony thorax appears normal. IMPRESSION: Normal chest. No change.
--- NOTE | 2021-08-24 20:42 | ED ---
Fever HPI - General Chief Complaint: Fever Stated Complaint: Fever Time Seen by Provider: 08/24/21 19:51 Source: patient, RN notes reviewed Mode of arrival: ambulatory Limitations: no limitations - History of Present Illness Initial Comments: This is an otherwise healthy 31-year-old male who presents to emergency department complaining of intermittent fevers for the past 2 weeks. Patient states he was initially seen at urgent care and head COVID-19 testing done as well as streptococcal testing. Patient states that everything was negative he is put on a Z-Kevin. Patient finished that medication but continued to have fevers and fatigue. Patient went to [facility] and had a workup done there to include laboratory work. Patient was sent home. Patient states that they did not do a urinalysis. He does have a history of urinary tract infection had old ciprofloxacin at home. He states he took them for 5 days and actually continued to feel fatigued and having intermittent low-grade fevers. No headache, no changes in vision or hearing, no sore throat or difficulty with speech, no neck pain, no chest pain or shortness of breath, no abdominal pain, no nausea or vomiting, no changes in urination or bowel movements, no numbness or tingling, no extremity pain, no skin rashes or lesions. MD Complaint: fever - Related Data Home Medications Medication Instructions Recorded Confirmed Aspirin EC [Ecotrin] 325 mg PO DAILY 10/12/20 08/24/21 Allergies Allergy/AdvReac Type Severity Reaction Status Date / Time Sulfa (Sulfonamide Allergy Dyspnea/Bi Verified 08/24/21 20:21 Antibiotics) h/Hives Review of Systems ROS Statement: Those systems with pertinent positive or pertinent negative responses have been documented in the HPI. ROS Other: All systems not noted in ROS Statement are negative. Past Medical History Past Medical History: No Reported History History of Any Multi-Drug Resistant Organisms: None Reported Past Surgical History: Appendectomy, Ear Surgery, Tonsillectomy Additional Past Surgical History / Comment(s): eye surgery Past Psychological History: No Psychological Hx Reported Smoking Status: Current every day smoker Past Alcohol Use History: Occasional, Rare Past Drug Use History: Marijuana General Exam - General Exam Comments Initial Comments: Patient does not appear to be in significant distress. Does not appear to be ill or toxic. Minimally tachycardic in triage. Limitations: no limitations General appearance: alert, in no apparent distress Head exam: Present: atraumatic, normocephalic, normal inspection Eye exam: Present: normal appearance, PERRL, EOMI. Absent: scleral icterus, conjunctival injection, periorbital swelling ENT exam: Present: normal exam, normal oropharynx, mucous membranes moist, TM's normal bilaterally, normal external ear exam. Absent: mucous membranes dry Neck exam: Present: normal inspection, full ROM. Absent: tenderness, meningismus, lymphadenopathy, thyromegaly Respiratory exam: Present: normal lung sounds bilaterally. Absent: respiratory distress, wheezes, rales, rhonchi, stridor Cardiovascular Exam: Present: regular rate, normal rhythm, normal heart sounds. Absent: systolic murmur, diastolic murmur, rubs, gallop, clicks GI/Abdominal exam: Present: soft, normal bowel sounds. Absent: distended, tenderness, guarding, rebound, rigid, diminished bowel sounds, hyperactive bowel sounds, hypoactive bowel sounds, organomegaly, mass Extremities exam: Present: normal inspection, full ROM, normal capillary refill. Absent: tenderness, pedal edema, joint swelling, calf tenderness Back exam: Present: normal inspection Neurological exam: Present: alert, oriented X3, CN II-XII intact Psychiatric exam: Present: normal affect, normal mood Skin exam: Present: warm, dry, intact, normal color. Absent: rash Course Vital Signs 08/24/21 08/24/21 08/24/21 19:36 19:56 21:43 Temperature 98.2 F 98.1 F 98.3 F Pulse Rate 104 H 79 Respiratory 18 16 Rate Blood Pressure 121/78 118/77 O2 Sat by Pulse 98 96 Oximetry 08/24/21 22:24 Temperature Pulse Rate 91 Respiratory 16 Rate Blood Pressure 128/85 O2 Sat by Pulse 99 Oximetry - Reevaluation(s) Reevaluation #1: 08/24/21 22:11 Medical record is reviewed Symptoms are improved here in the emergency department Patient is informed of results and questions answered Patient in no distress Reevaluation #2: 08/24/21 23:11 Medical record is reviewed Symptoms are improved here in the emergency department Patient is informed of results and questions answered Patient in no distress Medical Decision Making - Medical Decision Making Ongoing workup the patient as this is his third visit. Fatigue does raise a suspicion possible mononucleosis. We'll check him for this as well as other viral etiologies. Blood work ordered. Plan for reevaluation. Patient in no distress. The case was discussed in detail with ED attending physician. Presentation, findings, treatment plan discussed in detail. Patient was told to return to the ER for any signs or symptoms worsen. Told to return immediately if any other problems arise. All questions answered. Treatment plan discussed. Patient in agreement Every effort has been made to ensure accuracy of this dictation. However, due to the limitations of electronic medical records and dictation devices, errors in charting still occur. Patient had elevated enzymes. Patient has had intermittent low-grade fever for 2 weeks. Patient's other testing appears to be normal other than elevated transaminitis and bilirubin. Patient had no significant tenderness on abdominal examination. I did discuss risk factors with the patient. He has had no recent travel. No new sexual partners. No exposure to blood products. Patient was drinking alcohol up until a few weeks ago when he started feeling bad. He cut that out. Patient was only drinking about 3 drinks per night. Patient has been using acetaminophen but only up to 3000 g per day by [address] abdomen and pelvis does show evidence of splenomegaly which is new compared to the previous exam. No other acute findings. This does raise a suspicion of possible false negative heterophile testing. We'll add on an Kenneth-Wilson viral panel as well. - Lab Data Result diagrams: 08/24/21 21:08 08/24/21 21:08 Lab Results 08/24/21 08/24/21 08/24/21 Range/Units 20:10 20:45 20:45 WBC (3.8-10.6) k/uL RBC (4.30-5.90) m/uL Hgb (13.0-17.5) gm/dL Hct (39.0-53.0) % MCV (80.0-100.0) fL MCH (25.0-35.0) pg MCHC (31.0-37.0) g/dL RDW (11.5-15.5) % Plt Count (150-450) k/uL MPV Neutrophils % (Manual) % Lymphocytes % (Manual) % Monocytes % (Manual) % Eosinophils % (Manual) % Neutrophils # (Manual) (1.3-7.7) k/uL Lymphocytes # (Manual) (1.0-4.8) k/uL Monocytes # (Manual) (0-1.0) k/uL Eosinophils # (Manual) (0-0.7) k/uL Nucleated RBCs (0-0) /100 WBC Manual Slide Review Sodium (137-145) mmol/L Potassium (3.5-5.1) mmol/L Chloride (98-107) mmol/L Carbon Dioxide (22-30) mmol/L Anion Gap mmol/L BUN (9-20) mg/dL Creatinine (0.66-1.25) mg/dL Est GFR (CKD-EPI)AfAm (>60 ml/min/1.73 sqM) Est GFR (CKD-EPI)NonAf (>60 ml/min/1.73 sqM) Glucose (74-99) mg/dL Plasma Lactic Acid Nikolai (0.7-2.0) mmol/L Calcium (8.4-10.2) mg/dL Total Bilirubin (0.2-1.3) mg/dL GGT (15-73) U/L AST (17-59) U/L ALT (4-49) U/L Alkaline Phosphatase (38-126) U/L Creatine Kinase (55-170) U/L Total Protein (6.3-8.2) g/dL Albumin (3.5-5.0) g/dL Lipase (23-300) U/L Urine Color Dark Yellow Urine Appearance Clear (Clear) Urine pH 6.0 (5.0-8.0) Ur Specific [place] 1.015 (1.001-1.035) Urine Protein Trace H (Negative) Urine Glucose (UA) Negative (Negative) Urine Ketones 1+ H (Negative) Urine Blood Negative (Negative) Urine Nitrite Negative (Negative) Urine Bilirubin 1+ H (Negative) Urine Urobilinogen >12.0 (<2.0) mg/dL Ur Leukocyte Esterase Negative (Negative) Acetaminophen ug/mL Coronavirus (PCR) Not Detected (Not Detectd) Heterophile Antibody (Negative) Group A Strep Rapid Negative (Negative) 08/24/21 08/24/21 08/24/21 Range/Units 21:08 21:08 21:08 WBC 6.4 (3.8-10.6) k/uL RBC 5.34 (4.30-5.90) m/uL Hgb 16.2 (13.0-17.5) gm/dL Hct 45.4 (39.0-53.0) % MCV 85.0 (80.0-100.0) fL MCH 30.4 (25.0-35.0) pg MCHC 35.8 (31.0-37.0) g/dL RDW 14.2 (11.5-15.5) % Plt Count 234 (150-450) k/uL MPV 7.7 Neutrophils % (Manual) 57 % Lymphocytes % (Manual) 37 % Monocytes % (Manual) 4 % Eosinophils % (Manual) 2 % Neutrophils # (Manual) 3.65 (1.3-7.7) k/uL Lymphocytes # (Manual) 2.37 (1.0-4.8) k/uL Monocytes # (Manual) 0.26 (0-1.0) k/uL Eosinophils # (Manual) 0.13 (0-0.7) k/uL Nucleated RBCs 0 (0-0) /100 WBC Manual Slide Review Performed Sodium 132 L (137-145) mmol/L Potassium 3.3 L (3.5-5.1) mmol/L Chloride 96 L (98-107) mmol/L Carbon Dioxide 28 (22-30) mmol/L Anion Gap 8 mmol/L BUN 12 (9-20) mg/dL Creatinine 1.10 (0.66-1.25) mg/dL Est GFR (CKD-EPI)AfAm >90 (>60 ml/min/1.73 sqM) Est GFR (CKD-EPI)NonAf 88 (>60 ml/min/1.73 sqM) Glucose 93 (74-99) mg/dL Plasma Lactic Acid Nikolai (0.7-2.0) mmol/L Calcium 8.6 (8.4-10.2) mg/dL Total Bilirubin 2.8 H (0.2-1.3) mg/dL GGT (15-73) U/L AST 132 H (17-59) U/L ALT 199 H (4-49) U/L Alkaline Phosphatase 116 (38-126) U/L Creatine Kinase 389 H (55-170) U/L Total Protein 7.3 (6.3-8.2) g/dL Albumin 3.9 (3.5-5.0) g/dL Lipase 97 (23-300) U/L Urine Color Urine Appearance (Clear) Urine pH (5.0-8.0) Ur Specific [place] (1.001-1.035) Urine Protein (Negative) Urine Glucose (UA) (Negative) Urine Ketones (Negative) Urine Blood (Negative) Urine Nitrite (Negative) Urine Bilirubin (Negative) Urine Urobilinogen (<2.0) mg/dL Ur Leukocyte Esterase (Negative) Acetaminophen ug/mL Coronavirus (PCR) (Not Detectd) Heterophile Antibody Negative (Negative) Group A Strep Rapid (Negative) 08/24/21 08/24/21 Range/Units 21:08 22:31 WBC (3.8-10.6) k/uL RBC (4.30-5.90) m/uL Hgb (13.0-17.5) gm/dL Hct (39.0-53.0) % MCV (80.0-100.0) fL MCH (25.0-35.0) pg MCHC (31.0-37.0) g/dL RDW (11.5-15.5) % Plt Count (150-450) k/uL MPV Neutrophils % (Manual) % Lymphocytes % (Manual) % Monocytes % (Manual) % Eosinophils % (Manual) % Neutrophils # (Manual) (1.3-7.7) k/uL Lymphocytes # (Manual) (1.0-4.8) k/uL Monocytes # (Manual) (0-1.0) k/uL Eosinophils # (Manual) (0-0.7) k/uL Nucleated RBCs (0-0) /100 WBC Manual Slide Review Sodium (137-145) mmol/L Potassium (3.5-5.1) mmol/L Chloride (98-107) mmol/L Carbon Dioxide (22-30) mmol/L Anion Gap mmol/L BUN (9-20) mg/dL Creatinine (0.66-1.25) mg/dL Est GFR (CKD-EPI)AfAm (>60 ml/min/1.73 sqM) Est GFR (CKD-EPI)NonAf (>60 ml/min/1.73 sqM) Glucose (74-99) mg/dL Plasma Lactic Acid Nikolai 0.8 (0.7-2.0) mmol/L Calcium (8.4-10.2) mg/dL Total Bilirubin (0.2-1.3) mg/dL GGT 134 H (15-73) U/L AST (17-59) U/L ALT (4-49) U/L Alkaline Phosphatase (38-126) U/L Creatine Kinase (55-170) U/L Total Protein (6.3-8.2) g/dL Albumin (3.5-5.0) g/dL Lipase (23-300) U/L Urine Color Urine Appearance (Clear) Urine pH (5.0-8.0) Ur Specific [place] (1.001-1.035) Urine Protein (Negative) Urine Glucose (UA) (Negative) Urine Ketones (Negative) Urine Blood (Negative) Urine Nitrite (Negative) Urine Bilirubin (Negative) Urine Urobilinogen (<2.0) mg/dL Ur Leukocyte Esterase (Negative) Acetaminophen <10.0 ug/mL Coronavirus (PCR) (Not Detectd) Heterophile Antibody (Negative) Group A Strep Rapid (Negative) Disposition Clinical Impression: Fever, Transaminitis, Hypokalemia Disposition: HOME SELF-CARE Condition: Stable Instructions (If sedation given, give patient instructions): Fever in Adults (ED), Hypokalemia (ED) Additional Instructions: He testing here shows evidence of inflammation. We did add on and hepatitis panel as well as an Kenneth-Wilson viral panel. Call tomorrow morning to set up an appointment with your regular physician as well as a cement tile maker as discussed. Return here to the ER if any symptoms worsen or problems arise. Stop the acetaminophen and use [id number] ibuprofen for any discomfort or fever control. Take only as directed on the bottle. Ensure that he did not take the medication. Is patient prescribed a controlled substance at d/c from ED?: No Referrals: Edin Torres MD [Primary Care Provider] - 1-2 days Josie Taylor MD [STAFF PHYSICIAN] - 1-2 days Time of Disposition: 23:16
[2021-08-24 21:06] LABS: Appearance,Urine Clear (Clear); Bilirubin,Urine 1+ (Negative); Blood,Urine Negative (Negative); Color,Urine Dark Yellow; Glucose,Urine (UA) Negative (Negative); Ketones,Urine 1+ (Negative); Leukocyte Esterase,Urine Negative (Negative); Nitrite,Urine Negative (Negative); Protein,Urine Trace (Negative); Specific Gravity,Urine 1.015 (1.001-1.035); Urobilinogen,Urine >12.0 mg/dL (<2.0)
[2021-08-24 21:29] LABS: ALT 199 U/L (4-49); AST 132 U/L (17-59); African American GFR (CKD) >90 (>60 ml/min/1.73 sqM); Albumin 3.9 g/dL (3.5-5.0); Alkaline Phosphatase 116 U/L (38-126); Anion Gap 8 mmol/L; Blood Urea Nitrogen 12 mg/dL (9-20); Calcium 8.6 mg/dL (8.4-10.2); Carbon Dioxide 28 mmol/L (22-30); Chloride 96 mmol/L (98-107); Creatine Kinase 389 U/L (55-170); Glucose 93 mg/dL (74-99); Lipase 97 U/L (23-300); Non-African American GFR(CKD) 88 (>60 ml/min/1.73 sqM); Potassium 3.3 mmol/L (3.5-5.1); Sodium 132 mmol/L (137-145); Total Bilirubin 2.8 mg/dL (0.2-1.3); Total Protein 7.3 g/dL (6.3-8.2)
[2021-08-24 21:45] VITALS: RESP 16; TEMP 98.3
[2021-08-24 21:50] LABS: HCT 45.4 % (39.0-53.0); HGB 16.2 gm/dL (13.0-17.5); MCH 30.4 pg (25.0-35.0); MCHC 35.8 g/dL (31.0-37.0); Mean Platelet Volume 7.7; Platelet Count 234 k/uL (150-450); RBC 5.34 m/uL (4.30-5.90); RDW 14.2 % (11.5-15.5); WBC 6.4 k/uL (3.8-10.6)
[2021-08-24 22:11] LABS: Eosinophils # (M) 0.13 k/uL (0-0.7); Lymphocytes # (M) 2.37 k/uL (1.0-4.8); Monocytes # (M) 0.26 k/uL (0-1.0); Neutrophils # (M) 3.65 k/uL (1.3-7.7); Neutrophils % (M) 57 %; Nucleated Red Blood Cells 0 /100 WBC (0-0); Total Cells Counted 100
[2021-08-24] MEDS ORDERED: POTASSIUM CHLORIDE ER 20 MEQ TAB.ER PO STA (22:11)
[2021-08-24 22:25] VITALS: BP 128/85; PULSE 91
[2021-08-24 23:01] LABS: Acetaminophen <10.0 ug/mL; GGT 134 U/L (15-73)
--- NOTE | 2021-08-24 23:11 | CT ---
EXAMINATION TYPE: CT abdomen pelvis w con DATE OF EXAM: 08/24/2021 COMPARISON: 10/12/2020 HISTORY: Elevated transaminases, fever, abdomen pain CT DLP: 1440.8 mGycm Automated exposure control for dose reduction was used. CONTRAST: Performed with IV Contrast, patient injected with 100 mL of Isovue 300. The lung bases are clear. There is no pleural effusion. Heart size is normal. There is no pericardial effusion. Liver is intact. The bile ducts are not dilated. Spleen is enlarged and measures 19 cm. Th ere is no pancreatic mass. Stomach is intact. Gallbladder appears normal. There is no adrenal mass. Kidneys show satisfactory contrast opacification. There is no hydronephrosi s. Ureters are not dilated. There is no retroperitoneal adenopathy. Delayed images show normal renal excretion. There are clips from appendectomy. Bladder distends smoothly. There is no inguinal hernia. There is no free fluid in the pelvis. There is no sign of a pelvic mass. There is no mesenteric edema. There is no ascites or free air. There is no bowel obstruction. Lumbar vertebra show no compression fracture. There is L5 spondylolysis with first-degree L5-S1 spondylolist hesis. The bony pelvis is intact. The hip joints are intact. IMPRESSION: No acute abnormality of the abdomen and pelvis. There is moderate splenomegaly which is new compared to old exam.
[2021-08-24 23:23] LABS: INR 1.2 (<1.2); Partial Thromboplastin Time 23.7 sec (22.0-30.0); Prothrombin Time 12.7 sec (9.0-12.0)
[2021-08-25 10:12] LABS: Hepatitis A Antibody IgM Nonreactive (Nonreactive); Hepatitis B Core IgM Nonreactive (Nonreactive); Hepatitis B Surface Antigen Nonreactive (Nonreactive); Hepatitis C IgG Antibody Nonreactive (Nonreactive)
[2021-08-25 16:38] LABS: EBV-EA (IgG) <0.2 AI; EBV-EBNA(IgG) >8.0 AI; EBV-VCA (IgG) >8.0 AI
[2021-08-25 16:46] LABS: HIV 2 AB Non-Reactive (Non-Reactive); HIV AB P24 Non-Reactive (Non-Reactive); HIV P24 AG Non-Reactive (Non-Reactive)
== END 2021-08-24 23:26 | disposition home or self-care (01) ==
LOC: EC 19:33
DX: R50.9 Fever, unspecified (principal); R74.01 Elevation of levels of liver transaminase levels; E87.6 Hypokalemia; F17.200 Nicotine dependence, unspecified, uncomplicated; Z88.2 Allergy status to sulfonamides; Z79.82 Long term (current) use of aspirin; Z20.822 Contact with and (suspected) exposure to COVID-19
CPT/HCPCS: 36415; 86665 ×2; 80053; 80074; 86663; 82550; 82977; 83605; 83690; 85025; 85610; 85730; 86308; 81003; 87040; 86664; 80143; 87081; 87430; 87390; 87635; 71045; 74177; 99284; 96360; Q9967

== ENCOUNTER 2024-05-31 16:51 | Emergency (ER) | payer OTHER ==
--- NOTE | 2024-05-31 17:20 | ED ---
General Adult HPI - General Chief complaint: Recheck/Abnormal Lab/Rx Stated complaint: mold exposure Time Seen by Provider: 05/31/24 17:05 Source: patient, RN notes reviewed Mode of arrival: ambulatory Limitations: no limitations - History of Present Illness Initial comments: This is a 34-year-old male with no significant past medical history presenting to the emergency department with multiple complaints. States that over the past approximately week and a half he has been experiencing chills, decreased appetite with nausea, and mild bodyaches. He is concerned that he may have been exposed to black mold prior to symptom onset as he was helping a friend move furniture out of the house that was contaminated with black mold and rat feces. He denies any vomiting, abdominal pain, diarrhea, constipation, hematuria, dysuria. Patient is concerned that he is dehydrated. - Related Data Previous Rx's Medication Instructions Recorded Ondansetron Odt [Zofran Odt] 4 mg PO Q8HR PRN #10 tab 05/31/24 Allergies Allergy/AdvReac Type Severity Reaction Status Date / Time Sulfa (Sulfonamide Allergy Dyspnea/Bi Verified 05/31/24 17:54 Antibiotics) h/Hives Review of Systems ROS Statement: Those systems with pertinent positive or pertinent negative responses have been documented in the HPI. ROS Other: All systems not noted in ROS Statement are negative. Past Medical History Past Medical History: No Reported History History of Any Multi-Drug Resistant Organisms: None Reported Past Surgical History: Appendectomy, Ear Surgery, Tonsillectomy Additional Past Surgical History / Comment(s): eye surgery Past Psychological History: No Psychological Hx Reported Smoking Status: Current every day smoker Past Alcohol Use History: Occasional, Rare Past Drug Use History: Marijuana General Exam Limitations: no limitations Eye exam: Present: normal appearance, PERRL, EOMI. Absent: scleral icterus, conjunctival injection, periorbital swelling ENT exam: Present: normal exam, mucous membranes moist Neck exam: Present: normal inspection. Absent: tenderness, meningismus, lymphadenopathy Respiratory exam: Present: normal lung sounds bilaterally. Absent: respiratory distress, wheezes, rales, rhonchi, stridor Cardiovascular Exam: Present: regular rate, normal rhythm, normal heart sounds. Absent: systolic murmur, diastolic murmur, rubs, gallop, clicks GI/Abdominal exam: Present: soft, normal bowel sounds. Absent: distended, tenderness, guarding, rebound, rigid Extremities exam: Present: normal inspection, full ROM, normal capillary refill. Absent: tenderness, pedal edema, joint swelling, calf tenderness Back exam: Present: normal inspection Skin exam: Present: warm, dry, intact, normal color. Absent: rash Course Vital Signs 05/31/24 16:58 Temperature 98.3 F Pulse Rate 94 Respiratory 16 Rate Blood Pressure 148/103 O2 Sat by Pulse 100 Oximetry Medical Decision Making - Medical Decision Making Was pt. sent in by a medical professional or institution (, PA, LINEN MANAGER, urgent care, hospital, or senior living...) When possible be specific @ -No Did you speak to anyone other than the patient for history (EMS, parent, family, police, friend...)? What history was obtained from this source @ -No Did you review nursing and triage notes (agree or disagree)? Why? @ -I reviewed and agree with nursing and triage notes Were old charts reviewed (outside hosp., previous admission, EMS record, old EKG, old radiological studies, urgent care reports/EKG's, senior living records)? Report findings @ -No old charts were reviewed Differential Diagnosis (chest pain, altered mental status, abdominal pain women, abdominal pain men, vaginal bleeding, weakness, fever, dyspnea, syncope, headac he, dizziness, GI bleed, back pain, seizure, CVA, palpatations, mental health, musculoskeletal)? @ -Differential Abdominal Pain Men: Appendicitis, cholecystitis, diverticulosis, ischemic bowel, pancreatitis, hepatitis, UTI, gastroenteritis, AAA, incarcerated hernia, bowel obstruction, constipation, inflammatory bowel, hepatitis, peptic ulcer disease, splenic infarction, perforated viscus, testicular torsion, this is not meant to be an all-inclusive list EKG interpreted by me (3pts min.). @ -none X-rays interpreted by me (1pt min.). @ -None done CT interpreted by me (1pt min.). @ -None done U/S interpreted by me (1pt. min.). @ -None done What testing was considered but not performed or refused? (CT, X-rays, U/S, labs)? Why? @ -None What meds were considered but not given or refused? Why? @ -None Did you discuss the management of the patient with other professionals (professionals i.e. , PA, LINEN MANAGER, lab, RT, psych nurse, health social work professor, manager core, teacher, medical information officer, case specialist)? Give summary @ -No Was smoking cessation discussed for >3mins.? @ -No Was critical care preformed (if so, how long)? @ -No Were there social determinants of health that impacted care today? How? (Homeles sness, low income, unemployed, alcoholism, drug addiction, transportation, low edu. Level, literacy, decrease access to med. care, care home, rehab)? @ -No Was there de-escalation of care discussed even if they declined (Discuss DNR or withdrawal of care, Hospice)? DNR status @ -No What co-morbidities impacted this encounter? (DM, HTN, Smoking, COPD, CAD, Cancer, CVA, ARF, Chemo, Hep., AIDS, mental health diagnosis, sleep apnea, morbid obesity)? @ -None Was patient admitted / discharged? Hospital course, mention meds given and route, prescriptions, significant lab abnormalities, going to OR and other pertinent info. @ -Discharge. There is a female presenting with nausea and decreased appetite. Vitals are stable. Physical examination no acute findings. Patient will be provided with IV fluids and antiemetics pending laboratory results. Labs including CBC, CMP, urinalysis, viral panel unremarkable. After fluid administration and antiemetics patient states that he is feeling better. He is prescribed outpatient prescription for Zofran to take as needed. instructed follow-up outpatient primary care provider for further evaluation. discussed with Dr. Acosta Undiagnosed new problem with uncertain prognosis? @ -No Drug Therapy requiring intensive monitoring for toxicity (Heparin, Nitro, Insulin, Cardizem)? @ -No Were any procedures done? @ -No Diagnosis/symptom? @ -nausea, decrease in appetite Acute, or Chronic, or Acute on Chronic? @ -acute Uncomplicated (without systemic symptoms) or Complicated (systemic symptoms)? @ -uncomplicated Side effects of treatment? @ -No Exacerbation, Progression, or Severe Exacerbation? @ -No Poses a threat to life or bodily function? How? (Chest pain, [place], [place], pneumonia, PE, COPD, DKA, ARF, appy, cholecystitis, CVA, Diverticulitis, Homicidal, S uicidal, threat to staff... and all critical care pts) @ -No - Lab Data Result diagrams: 05/31/24 17:32 05/31/24 17:32 Lab Results 05/31/24 05/31/24 05/31/24 Range/Units 17:32 17:32 17:32 WBC 7.8 (3.8-10.6) k/uL RBC 5.99 H (4.30-5.90) m/uL Hgb 18.0 H (13.0-17.5) gm/dL Hct 51.0 (39.0-53.0) % MCV 85.1 (80.0-100.0) fL MCH 30.1 (25.0-35.0) pg MCHC 35.4 (31.0-37.0) g/dL RDW 12.7 (11.5-15.5) % Plt Count 280 (150-450) k/uL MPV 7.1 Neutrophils % 72 % Lymphocytes % 20 % Monocytes % 4 % Eosinophils % 2 % Basophils % 1 % Neutrophils # 5.7 (1.3-7.7) k/uL Lymphocytes # 1.6 (1.0-4.8) k/uL Monocytes # 0.3 (0-1.0) k/uL Eosinophils # 0.1 (0-0.7) k/uL Basophils # 0.1 (0-0.2) k/uL Sodium 137 (137-145) mmol/L Potassium 4.4 (3.5-5.1) mmol/L Chloride 102 (98-107) mmol/L Carbon Dioxide 24 (22-30) mmol/L Anion Gap 11 mmol/L BUN 12 (9-20) mg/dL Creatinine 1.07 (0.66-1.25) mg/dL Est GFR (CKD-EPI)AfAm >90 (>60 ml/min/1.73 sqM) Est GFR (CKD-EPI)NonAf 90 (>60 ml/min/1.73 sqM) Glucose 91 (74-99) mg/dL Calcium 10.1 (8.4-10.2) mg/dL Magnesium 1.9 (1.6-2.3) mg/dL Total Bilirubin 2.2 H (0.2-1.3) mg/dL AST 32 (17-59) U/L ALT 24 (4-49) U/L Alkaline Phosphatase 39 (38-126) U/L Total Protein 7.9 (6.3-8.2) g/dL Albumin 5.4 H (3.5-5.0) g/dL Lipase 161 (23-300) U/L Urine Color Yellow Urine Appearance Clear (Clear) Urine pH 5.5 (5.0-8.0) Ur Specific [place] 1.031 (1.001-1.035) Urine Protein Trace H (Negative) Urine Glucose (UA) Negative (Negative) Urine Ketones 1+ H (Negative) Urine Blood Negative (Negative) Urine Nitrite Negative (Negative) Urine Bilirubin Negative (Negative) Urine Urobilinogen 2.0 (<2.0) mg/dL Ur Leukocyte Esterase Negative (Negative) Influenza Type A (PCR) (Not Detectd) Influenza Type B (PCR) (Not Detectd) RSV (PCR) (Not Detectd) SARS-CoV-2 (PCR) (Not Detectd) 05/31/24 Range/Units 17:40 WBC (3.8-10.6) k/uL RBC (4.30-5.90) m/uL Hgb (13.0-17.5) gm/dL Hct (39.0-53.0) % MCV (80.0-100.0) fL MCH (25.0-35.0) pg MCHC (31.0-37.0) g/dL RDW (11.5-15.5) % Plt Count (150-450) k/uL MPV Neutrophils % % Lymphocytes % % Monocytes % % Eosinophils % % Basophils % % Neutrophils # (1.3-7.7) k/uL Lymphocytes # (1.0-4.8) k/uL Monocytes # (0-1.0) k/uL Eosinophils # (0-0.7) k/uL Basophils # (0-0.2) k/uL Sodium (137-145) mmol/L Potassium (3.5-5.1) mmol/L Chloride (98-107) mmol/L Carbon Dioxide (22-30) mmol/L Anion Gap mmol/L BUN (9-20) mg/dL Creatinine (0.66-1.25) mg/dL Est GFR (CKD-EPI)AfAm (>60 ml/min/1.73 sqM) Est GFR (CKD-EPI)NonAf (>60 ml/min/1.73 sqM) Glucose (74-99) mg/dL Calcium (8.4-10.2) mg/dL Magnesium (1.6-2.3) mg/dL Total Bilirubin (0.2-1.3) mg/dL AST (17-59) U/L ALT (4-49) U/L Alkaline Phosphatase (38-126) U/L Total Protein (6.3-8.2) g/dL Albumin (3.5-5.0) g/dL Lipase (23-300) U/L Urine Color Urine Appearance (Clear) Urine pH (5.0-8.0) Ur Specific [place] (1.001-1.035) Urine Protein (Negative) Urine Glucose (UA) (Negative) Urine Ketones (Negative) Urine Blood (Negative) Urine Nitrite (Negative) Urine Bilirubin (Negative) Urine Urobilinogen (<2.0) mg/dL Ur Leukocyte Esterase (Negative) Influenza Type A (PCR) Not Detected (Not Detectd) Influenza Type B (PCR) Not Detected (Not Detectd) RSV (PCR) Not Detected (Not Detectd) SARS-CoV-2 (PCR) Not Detected (Not Detectd) Disposition Clinical Impression: Nausea, Decrease in appetite Disposition: HOME SELF-CARE Condition: Good Additional Instructions: Please return to the Emergency Department if symptoms worsen or any other concerns. Prescriptions: Ondansetron Odt [Zofran Odt] 4 mg PO Q8HR PRN #10 tab PRN Reason: Nausea Is patient prescribed a controlled substance at d/c from ED?: No Referrals: None,Stated [Primary Care Provider] - 1-2 days Time of Disposition: 18:34
[2024-05-31] MEDS: SODIUM CHLORIDE 0.9% 1,000 ML IV STA (17:36)
[2024-05-31] MEDS: ONDANSETRON 4 MG/2 ML VIAL IVP STA (17:36)
[2024-05-31 17:44] LABS: Appearance,Urine Clear (Clear); Basophils # (A) 0.1 k/uL (0-0.2); Basophils % (A) 1 %; Bilirubin,Urine Negative (Negative); Blood,Urine Negative (Negative); Color,Urine Yellow; Eosinophils # (A) 0.1 k/uL (0-0.7); Eosinophils % (A) 2 %; Glucose,Urine (UA) Negative (Negative); Ketones,Urine 1+ (Negative); Leukocyte Esterase,Urine Negative (Negative); Lymphocytes # (A) 1.6 k/uL (1.0-4.8); Lymphocytes % (A) 20 %; MCH 30.1 pg (25.0-35.0); MCHC 35.4 g/dL (31.0-37.0); MCV 85.1 fL (80.0-100.0); Mean Platelet Volume 7.1; Monocytes # (A) 0.3 k/uL (0-1.0); Monocytes % (A) 4 %; Neutrophils # (A) 5.7 k/uL (1.3-7.7); Neutrophils % (A) 72 %; Nitrite,Urine Negative (Negative); PH, Urine 5.5 (5.0-8.0); Platelet Count 280 k/uL (150-450); Protein,Urine Trace (Negative); RBC 5.99 m/uL (4.30-5.90); RDW 12.7 % (11.5-15.5); Specific Gravity,Urine 1.031 (1.001-1.035); WBC 7.8 k/uL (3.8-10.6)
[2024-05-31 18:02] LABS: ALT 24 U/L (4-49); African American GFR (CKD) >90 (>60 ml/min/1.73 sqM); Albumin 5.4 g/dL (3.5-5.0); Anion Gap 11 mmol/L; Blood Urea Nitrogen 12 mg/dL (9-20); Calcium 10.1 mg/dL (8.4-10.2); Carbon Dioxide 24 mmol/L (22-30); Chloride 102 mmol/L (98-107); Glucose 91 mg/dL (74-99); Lipase 161 U/L (23-300); Non-African American GFR(CKD) 90 (>60 ml/min/1.73 sqM); Sodium 137 mmol/L (137-145); Total Bilirubin 2.2 mg/dL (0.2-1.3); Total Protein 7.9 g/dL (6.3-8.2)
[2024-05-31 18:25] LABS: AST 32 U/L (17-59); Alkaline Phosphatase 39 U/L (38-126); Magnesium 1.9 mg/dL (1.6-2.3); Potassium 4.4 mmol/L (3.5-5.1)
[2024-05-31 19:33] VITALS: BP 136/89; PULSE 60; RESP 18; TEMP 98.6
== END 2024-05-31 18:45 | disposition home or self-care (01) ==
LOC: EC 16:51
DX: R63.0 Anorexia (principal); R11.0 Nausea; F17.200 Nicotine dependence, unspecified, uncomplicated; Z88.2 Allergy status to sulfonamides
CPT/HCPCS: 36415; 80053; 83690; 83735; 85025; 81003; 87636; 99283; 96374; 96361; J2405

== ENCOUNTER 2024-07-01 13:26 | Emergency (ER) | payer OTHER ==
[2024-07-01 13:30] VITALS: RESP 16
[2024-07-01 14:01] LABS: Basophils # (A) 0.1 k/uL (0-0.2); Basophils % (A) 1 %; Eosinophils # (A) 0.2 k/uL (0-0.7); Eosinophils % (A) 3 %; HCT 48.2 % (39.0-53.0); HGB 16.9 gm/dL (13.0-17.5); Lymphocytes # (A) 1.1 k/uL (1.0-4.8); Lymphocytes % (A) 18 %; MCH 29.6 pg (25.0-35.0); MCHC 35.1 g/dL (31.0-37.0); MCV 84.3 fL (80.0-100.0); Mean Platelet Volume 7.1; Monocytes # (A) 0.3 k/uL (0-1.0); Monocytes % (A) 5 %; Neutrophils # (A) 4.5 k/uL (1.3-7.7); Neutrophils % (A) 73 %; Platelet Count 258 k/uL (150-450); RBC 5.71 m/uL (4.30-5.90); RDW 12.2 % (11.5-15.5); WBC 6.2 k/uL (3.8-10.6)
[2024-07-01 14:19] LABS: INR 1.1 (<1.2); Partial Thromboplastin Time 23.8 sec (22.0-30.0); Prothrombin Time 11.7 sec (10.0-12.5)
--- NOTE | 2024-07-01 14:23 | XR ---
EXAMINATION TYPE: XR chest 2V DATE OF EXAM: 07/01/2024 1:57 PM COMPARISON: Chest radiographs from 08/24/2021 CLINICAL INDICATION: Male, 34 years old with history of Chest Pain; TECHNIQUE: XR chest 2V Frontal and lateral views of the chest. FINDINGS: Lungs/Pleura: There is no evidence of pleural effusion, focal consolidation, or pneumothorax. Pulmonary vascularity: Unremarkable. Heart/mediastinum: Cardiomediastinal silhouette is unremarkable. Musculoskeletal: No acute osseous pathology. IMPRESSION: No acute cardiopulmonary disease/process. [facility], , 07/01/2024 2:21 PM
[2024-07-01 14:30] LABS: ALT 23 U/L (4-49); AST 24 U/L (17-59); African American GFR (CKD) >90 (>60 ml/min/1.73 sqM); Albumin 4.8 g/dL (3.5-5.0); Alkaline Phosphatase 49 U/L (38-126); Anion Gap 7 mmol/L; Blood Urea Nitrogen 9 mg/dL (9-20); Calcium 10.2 mg/dL (8.4-10.2); Carbon Dioxide 29 mmol/L (22-30); Chloride 102 mmol/L (98-107); Glucose 100 mg/dL (74-99); Lipase 61 U/L (23-300); Magnesium 1.7 mg/dL (1.6-2.3); Non-African American GFR(CKD) >90 (>60 ml/min/1.73 sqM); Potassium 4.2 mmol/L (3.5-5.1); Sodium 138 mmol/L (137-145); Total Bilirubin 1.7 mg/dL (0.2-1.3); Total Protein 7.2 g/dL (6.3-8.2)
--- NOTE | 2024-07-01 14:58 | ED ---
Chest Pain HPI - General Chief Complaint: Chest Pain Stated Complaint: Elv HR Time Seen by Provider: 07/01/24 13:30 Source: patient Mode of arrival: ambulatory Limitations: no limitations - History of Present Illness Initial Comments: 34-year-old male presents emergency department reporting chest pains and palpitations. Patient states that yesterday while he was playing on his computer he had sudden onset of chest pain with associated shortness of breath. Brutus like he was having a hot flash. He went into [facility] last night. Laboratory studies were conducted and patient was discharged home. Instructed follow-up with PCP. Patient states that he had an episode earlier today which prompted him to come back to the emergency department however the patient wanted a second opinion. He denies have any fevers. No associated nausea or vomiting. Patient has no personal history of cardiac disease. Does admit to a family history of hypertension. No abdominal pain. No other alleviating, precipitating or modifying factors - Related Data Previous Rx's Medication Instructions Recorded Ondansetron Odt [Zofran Odt] 4 mg PO Q8HR PRN #10 tab 05/31/24 Allergies Allergy/AdvReac Type Severity Reaction Status Date / Time Sulfa (Sulfonamide Allergy Dyspnea/Bi Verified 05/31/24 17:54 Antibiotics) h/Hives Review of Systems ROS Statement: Those systems with pertinent positive or pertinent negative responses have been documented in the HPI. ROS Other: All systems not noted in ROS Statement are negative. Past Medical History Past Medical History: No Reported History History of Any Multi-Drug Resistant Organisms: None Reported Past Surgical History: Adenoidectomy, Appendectomy, Ear Surgery, Tonsillectomy Additional Past Surgical History / Comment(s): eye surgery Past Psychological History: No Psychological Hx Reported Smoking Status: Current every day smoker Past Alcohol Use History: Occasional, Rare Past Drug Use History: Marijuana General Exam Limitations: no limitations Course Vital Signs 07/01/24 13:28 Temperature 98.1 F Pulse Rate 86 Respiratory 16 Rate Blood Pressure 153/95 O2 Sat by Pulse 98 Oximetry Chest Pain MDM - MDM Was pt. sent in by a medical professional or institution (, PA, STORE PROTECTION SPECIALIST, urgent care, hospital, or retirement...) When possible be specific @ -[No] Did you speak to anyone other than the patient for history (EMS, parent, family, police, friend...)? What history was obtained from this source @ -[No] Did you review nursing and triage notes (agree or disagree)? Why? @ -[I reviewed and agree with nursing and triage notes] Were old charts reviewed (outside hosp., previous admission, EMS record, old EKG, old radiological studies, urgent care reports/EKG's, retirement records)? Report findings @ -[No old charts were reviewed] Differential Diagnosis (chest pain, altered mental status, abdominal pain women, abdominal pain men, vaginal bleeding, weakness, fever, dyspnea, syncope, headache, dizziness, GI bleed, back pain, seizure, CVA, palpatations, mental health, musculoskeletal)? @ -[not applicable] EKG interpreted by me (3pts min.). @ -Yes and demonstrates sinus rhythm with rate of 70. [place] interval 138. QRS 105. QTc of 384. No acute ST segment elevations or depressions X-rays interpreted by me (1pt min.). @ -[None done] CT interpreted by me (1pt min.). @ -[None done] U/S interpreted by me (1pt. min.). @ -[None done] What testing was considered but not performed or refused? (CT, X-rays, U/S, labs)? Why? @ -[None] What meds were considered but not given or refused? Why? @ -[None] Did you discuss the management of the patient with other professionals (professionals i.e. , PA, STORE PROTECTION SPECIALIST, lab, RT, psych nurse, family welfare social work professor, barrel rifler button, teacher, navigation officer, casework manager)? Give summary @ -[No] Was smoking cessation discussed for >3mins.? @ -[No] Was critical care preformed (if so, how long)? @ -[No] Were there social determinants of health that impacted care today? How? (Homelessness, low income, unemployed, alcoholism, drug addiction, transportation, low edu. Level, literacy, decrease access to med. care, prison, rehab)? @ -[No] Was there de-escalation of care discussed even if they declined (Discuss DNR or withdrawal of care, Hospice)? DNR status @ -[No] What co-morbidities impacted this encounter? (DM, HTN, Smoking, COPD, CAD, Cancer, CVA, ARF, Chemo, Hep., AIDS, mental health diagnosis, sleep apnea, morbid obesity)? @ -[None] Was patient admitted / discharged? Hospital course, mention meds given and route, prescriptions, significant lab abnormalities, going to OR and other pertinent info. @ -[hospital course] Undiagnosed new problem with uncertain prognosis? @ -[No] Drug Therapy requiring intensive monitoring for toxicity (Heparin, Nitro, Insulin, Cardizem)? @ -[No] Were any procedures done? @ -[No] Diagnosis/symptom? @ -[default] Acute, or Chronic, or Acute on Chronic? @ -[default] Uncomplicated (without systemic symptoms) or Complicated (systemic symptoms)? @ -[default] Side effects of treatment? @ -[No] Exacerbation, Progression, or Severe Exacerbation? @ -[No] Poses a threat to life or bodily function? How? (Chest pain, [place], [place], pneumonia, PE, COPD, DKA, ARF, appy, cholecystitis, CVA, Diverticulitis, Homicidal, Suicidal, threat to staff... and all critical care pts) @ -[No] Disposition Clinical Impression: Chest pain Disposition: HOME SELF-CARE Condition: Stable Instructions (If sedation given, give patient instructions): Chest Pain (ED) Additional Instructions: I recommend that you follow-up with the cardiology office. I think you need an updated stress test, echo and Holter monitoring. They may also consider a tilt table test. Feel free to return to the emergency department for any new or worsening symptoms Is patient prescribed a controlled substance at d/c from ED?: No Referrals: [facility] [Provider Group] - 1-2 days [facility] [place] [NON-STAFF] - 1-2 days Time of Disposition: 15:17
[2024-07-01 16:19] VITALS: BP 162/84; PULSE 59; TEMP 98.2
== END 2024-07-01 16:19 | disposition home or self-care (01) ==
LOC: EC 13:26
DX: R07.9 Chest pain, unspecified (principal); F17.200 Nicotine dependence, unspecified, uncomplicated; Z88.2 Allergy status to sulfonamides
CPT/HCPCS: 36415; 71046; 80053; 83690; 83735; 84443; 84484; 85025; 85379; 85610; 85730; 93005; 99285